=== PATIENT | male | born 1950 ===

== ENCOUNTER 2020-05-09 06:58 | Day surgery (SDC) | payer MEDICARE, BC ==
[~2020-05-09 06:58] MED LIST: Famotidine 20 MG/2 ML SDV IVPUSH SCH; Ropivacaine 49.25 ML, Ketorolac 30 MG, EPINEPHrine 0.5 MG, cloNIDine 80 MCG in Sodium C... INJECT SCH; Tranexamic Acid 1,000 MG in Sodium Chloride 0.9% 100 ML IV ONE
[2020-05-09] MEDS ORDERED: Propofol 200 MG/20 ML SDV ONE ×4 (07:35→11:43)
[2020-05-09] MEDS ORDERED: Ketamine 500 mg/10 ML MDV ONE (07:35)
--- NOTE | 2020-05-09 07:37 | PCM.PREANE ---
Preanesthetic Assessment - Anesthesia/Transfusion/Family Hx Anesthesia History: Prior Anesthesia Without Reaction (L RACHEL 10 mo ago under spinal) Other Type of Anesthesia Reaction Comment: states "it took 3 days for the Anesthesia to leave my body" some nausea Transfusion History: No Prior Transfusion(s) Intubation History: Unknown - Review of Systems General: No Symptoms Pulmonary: No Symptoms Cardiovascular: No Symptoms Gastrointestinal: No Symptoms Neurological: No Symptoms Other: Reports: None - Physical Assessment NPO Status Date: 05/08/20 Vital Signs: Last Vital Signs Temp 96.6 F L 05/09/20 07:15 Pulse 67 05/09/20 07:15 Resp 16 05/09/20 07:15 BP 179/82 H 05/09/20 07:15 Pulse Ox 98 05/09/20 07:15 Height: 5 ft 7 in Weight: 102.058 kg ASA Class: 3 Airway Class: Mallampati = 2 Dentition: Reports: [place](s) ("caps" on maxillary central incisors) ROM/Head Extension: Full Lungs: Clear to Auscultation, Normal Respiratory Effort Cardiovascular: Regular Rate, Regular Rhythm Other: thick neck but denies LIANNE sx - Allergies Allergies/Adverse Reactions: Allergies Allergy/AdvReac Type Severity Reaction Status Date / Time bee venom protein (honey bee) Allergy Anaphylactic Verified 05/04/20 12:12 Shock Iodinated Contrast Media Allergy Rash Verified 05/04/20 12:12 [Iodinated Contrast- Oral and IV Dye] - Acknowledgements Anesthesia Type Planned: Spinal Pt an Appropriate Candidate for the Planned Anesthesia: Yes Alternatives and Risks of Anesthesia Discussed w Pt/Guardian: Yes Pt/Guardian Understands and Agrees with Anesthesia Plan: Yes Additional Comments: PMH: hx of abnoemal stress test, had heart cath in [place], told one vessel disease to not require intervention, HTN, DM2 with glucose 171 upon arrival, peripheral neuropathy from DM2 PLAN: spinal with iv sedation PreAnesthesia Questionnaire HEENT History: Reports: Other (See Below) Other HEENT History: wears glasses, Cardiovascular History: Reports: High Cholesterol, Hypertension Respiratory History: Reports: None Gastrointestinal History: Reports: Diverticulosis Genitourinary History: Reports: BPH Musculoskeletal History: Reports: Osteoarthritis Neurological History: Reports: Concussion Other Neuro History: from [facility] Psychiatric History: Reports: None Endocrine/Metabolic History: Reports: Diabetes, Type II, Obesity/BMI 30+ Hematologic History: Reports: None Other Hematologic History: diagnosed at age 16- has had blood removed in the past- no symptoms for many years Immunologic History: Reports: None Oncologic (Cancer) History: Reports: None Dermatologic History: Reports: None - Infectious Disease History Infectious Disease History: Reports: Chicken Pox - Past Surgical History Other HEENT Surgeries/Procedures: has one dental implant (tooth) Musculoskeletal Surgical History: Reports: None, Other (See Below) - SUBSTANCE USE Smoking Status *Q: Never Smoker Recreational Drug Use History: No - HOME MEDS Home Medications: Home Meds amLODIPine Besylate [Norvasc] 2.5 mg PO BEDTIME 09/16/16 [History] atorvaSTATin Calcium [Atorvastatin Calcium] 10 mg PO BEDTIME 09/16/16 [History] metFORMIN HCl [Metformin HCl] 1,000 mg PO BID 09/16/16 [History] SitaGLIPtin [Januvia] 100 mg PO DAILY 06/30/18 [History] Lisinopril/Hydrochlorothiazide [Lisinopril-Hctz 20-25 mg Tab] 1 tab PO BEDTIME 07/07/19 [History] [place]-3 Acid Ethyl Esters [Lovaza] 2,000 mg PO BID 05/04/20 [History] - CURRENT (IN HOUSE) MEDS Current Meds: Current Medications Famotidine (Pepcid) 40 mg IVPUSH ONARRIVE DEINS Ropivacaine 49.25 ml/Ketorolac Tromethamine 30 mg/Epinephrine HCl 0.5 mg/Clonidine HCl 80 mcg/ Sodium Chloride 75 mls @ 50 mls/sec INJECT ASDIRECTED DENIS Cefazolin Sodium/Dextrose 2 gm (/ Premix) 50 mls @ 100 mls/hr IV ONCALL DENIS Lactated Ringer's (Ringers, Lactated) 1,000 mls @ 100 mls/hr IV ASDIRECTED DENIS Discontinued Medications Tranexamic Acid 1,000 mg/ (Sodium Chloride) 110 mls @ 600 mls/hr IV ASDIRECTED ONE Stop: 05/09/20 06:11
[2020-05-09] MEDS: Lactated Ringers 1,000 ML IV SCH ×2 (07:45→15:52)
[2020-05-09] MEDS ORDERED: ceFAZolin 2 GM in Premix Bag 1 BAG IV SCH (08:00)
[2020-05-09] MEDS ORDERED: Famotidine 20 MG/2 ML SDV ONE ×2 (08:01→08:04)
[2020-05-09] MEDS ORDERED: fentaNYL 100 MCG/2 ML SDV ONE (08:44)
[2020-05-09] MEDS ORDERED: ceFAZolin/Dextrose,Iso-Osmotic 2 GM/50 ML Duplex Bag IV ONE (09:44)
--- NOTE | 2020-05-09 12:10 | PCM.OPNOTE ---
- General Post-Op/Procedure Note Date of Surgery/Procedure: 05/09/20 Operative Procedure(s): Right total hip replacement Findings: Severe right hip arthrosis with large osteophytes and complete loss of joint space Pre Op Diagnosis: Right hip grade 4 primary osteoarthritis Post-Op Diagnosis: Right hip grade 4 primary osteoarthritis Anesthesia Technique: Spinal Primary Surgeon: Severo Pepper Hospitality Intern: Mita Mclean Hospitality Intern Was Necessary: Retraction and positioning, hip reduction. Pathology: Bone cuts and periarticular soft tissues EBL in mLs: 300 Complications: None Free Text/Narrative:: Patient is a 69-year-old male who previously had a left total hip arthroplasty. He had an excellent outcome. He had grade 4 arthritis of the right hip and wished to proceed with a right total hip replacement. We discussed the risks an d benefits of surgery. He was medically cleared for surgery by his primary care provider. All questions were answered. Patient consented to proceed with surgery. Patient was taken to the operating. After adequate spinal anesthesia, he was placed in a left lateral decubitus position with right side up. The right buttock hip and thigh were prepped and draped in usual sterile manner. An anterolateral approach to the hip was used. Skin was incised with a scalpel. Subcutaneous tissues were incised electrocautery. The iliotibial band was split between fibers. The anterior third of the abductors were taken down and retracted anteriorly. A capsulotomy was performed with retraction sutures placed in the corners. The hip dislocated and the proximal femoral cut made with an oscillating saw. Retractors were placed around the acetabulum. Labrum and soft tissues were excised. The acetabulum was sequentially reamed to the medial wall up to a size 56. A [employer] R3 acetabular shell was inserted. Two screws were inserted through the holes in the shell. Two hole covers were placed. A 20 degree build up highly cross-linked acetabular liner was then inserted and locked into place. The proximal femur was prepared starting with a cookie cutter. Sequentially reamed to size 13-14. Then sequentially broached to size 13 with good fit and fill and stability. A trial reduction was done with a +0 36 mm head with had good range of motion and stability. Trial components were removed from the femur. A [employer] Synergy standard offset ingrowth femoral stem was then inserted. A +0 36 mm diameter Oxinium femoral head was then tapped in place. The hip was reduced and again excellent stability and range of motion were noted. Wounds were irrigated. Capsulotomy was repaired with interrupted #1 Vicryl sutures. Abductors were repaired back to the greater trochanter with interrupted #5 Ethibond sutures. Iliotibial band was repaired with interrupted #1 Vicryl sutures and the edges closed with running sutures. Skin was closed with a running subcuticular stitch. Steri-Strips and a sterile dressing were applied and patient was a come to the recovery room in stable condition. Pain management: Periarticular injections, fascia iliaca block, ibuprofen, acetaminophen, oxycodone. Venous thromboembolism prophylaxis: Enteric-coated aspirin 325 mg daily for 3 months Antibiotics: Ancef 1 g for 2 doses Restrictions: Patient is weightbearing as tolerated on his right lower extremity with walker assistive device as needed. Anterolateral hip dislocation precautions.
[2020-05-09] MEDS ORDERED: Sodium Chloride 0.9% 2.5 ML Syringe FLUSH PRN (12:24)
[2020-05-09] MEDS ORDERED: Sodium Chloride 0.9% 10 ML Syringe FLUSH PRN (12:24)
[2020-05-09] MEDS ORDERED: Ondansetron 4 MG/2 ML SDV IVPUSH PRN (12:24)
[2020-05-09] MEDS ORDERED: traMADol 50 MG Tab PO PRN (12:24)
[2020-05-09] MEDS ORDERED: Docusate Sodium 100 MG Cap PO PRN (12:24)
[2020-05-09] MEDS ORDERED: diphenhydrAMINE 25 MG Cap PO PRN (12:24)
[2020-05-09] MEDS ORDERED: Bisacodyl 10 MG Supp RECTAL PRN (12:24)
[2020-05-09] MEDS ORDERED: oxyCODONE 5 MG Tab PO PRN (12:24)
[2020-05-09] MEDS ORDERED: Aluminum Hydroxide/Magnesium Hydroxide/Simethicone Susp 30 ML Cup PO PRN (12:24)
[2020-05-09] MEDS ORDERED: Ropivacaine 0.2% PF 2 MG/ML 20 ML SDV ONE (12:58)
[2020-05-09] MEDS ORDERED: Ketorolac 30 MG/ML SDV ONE (13:30)
[2020-05-09] MEDS: Ketorolac 15 MG/ML SDV IVPUSH SCH ×3 (13:33→23:40)
--- NOTE | 2020-05-09 14:00 | PCM.POSTAN ---
POST ANESTHESIA ASSESSMENT - MENTAL STATUS Mental Status: Alert, Oriented - VITAL SIGNS Vital Signs: Last Vital Signs Temp 36.7 C 05/09/20 12:14 Pulse 66 05/09/20 13:31 Resp 21 H 05/09/20 13:31 BP 130/66 05/09/20 13:31 Pulse Ox 93 L 05/09/20 13:31 - RESPIRATORY Respiratory Status: Respiratory Rate WNL, Airway Patent, O2 Saturation Stable - CARDIOVASCULAR CV Status: Pulse Rate WNL, Blood Pressure Stable - GASTROINTESTINAL GI Status: No Symptoms - PAIN Pain Score: 0 - POST OP HYDRATION Hydration Status: Adequate & Stable - OBSERVATIONS Free Text/Narrative:: No anesthesia complications noted.
--- NOTE | 2020-05-09 14:07 | PCM.SN.2 ---
- Free Text/Narrative Note: Anesthesia Post-op Pain Right Fascia Iliaca Block Surgeon request block for post op pain management. Informed consent obtained. Anatomy of right inguinal area identified using ultrasound and landmarks. Chloraprep to right inguinal area. Right Femoral artery and right iliaca muscle identified. #20x4 inch needle was introduced using an in-plane approach. Needle position was identified as adequate. Fascial Iliaca was hydro-dissected with 3ml of Normal Saline. Adequate dissection noted. A volume of 20ml of 0.5% Ropiva chela was slowly and cautiously injected in divided doses. No TOOLROOM ATTENDANT effects or heme aspirated. Adequate local spread was noted. Patient tolerated well. Time with patient: 05/09/2020 [id number].
[2020-05-09 14:28] LABS: BLOOD UREA NITROGEN,BUN 11 mg/dL (7.0-18.0); CARBON DIOXIDE,CO2 27.2 mmol/L (21.0-32.0); CHLORIDE,CL 103 mmol/L (98-107); GLUCOSE RANDOM 185 mg/dL (74-106); POTASSIUM,K 4.1 mmol/L (3.5-5.1); SODIUM,NA 139 mmol/L (136-148)
--- NOTE | 2020-05-09 14:33 | PCM.CONS ---
H&P History of Present Illness - General Date of Service: 05/09/20 Admit Problem/Dx: Admission Diagnosis/Problem Admission Diagnosis/Problem Hip pain Source of Information: Patient, Old Records History Limitations: Reports: No Limitations - History of Present Illness Initial Comments - Free Text/Narative: This 69 year old male admitted for R total hip arthroplasty with Dr Pepper. Has PMH of HTN, DM type 2, and obesity, hospitalist consultation for medical management. Camilo recently arrived to the unit from the PACU. Reports he is feeling well, wanting water or ice chips. Denies chest pain or SOB. Denies hip pain currently. Sensation slowly returning to legs post spinal anesthesia. Had L total hip last year, no significant change in health. Denies new heart disease, NC or CVA. Reports he had a abnormal stress test but then cath revealed a small artery, no disease. No stent was placed. reports DM type 2 is well controlled with home regimen. - Related Data Allergies/Adverse Reactions: Allergies Allergy/AdvReac Type Severity Reaction Status Date / Time bee venom protein (honey bee) Allergy Anaphylactic Verified 05/04/20 12:12 Shock Iodinated Contrast Media Allergy Rash Verified 05/04/20 12:12 [Iodinated Contrast- Oral and IV Dye] Home Medications: Home Meds amLODIPine Besylate [Norvasc] 2.5 mg PO BEDTIME 09/16/16 [History] atorvaSTATin Calcium [Atorvastatin Calcium] 10 mg PO BEDTIME 09/16/16 [History] metFORMIN HCl [Metformin HCl] 1,000 mg PO BID 09/16/16 [History] SitaGLIPtin [Januvia] 100 mg PO DAILY 06/30/18 [History] Lisinopril/Hydrochlorothiazide [Lisinopril-Hctz 20-25 mg Tab] 1 tab PO BEDTIME 07/07/19 [History] [place]-3 Acid Ethyl Esters [Lovaza] 2,000 mg PO BID 05/04/20 [History] Past Medical History HEENT History: Reports: Other (See Below) Other HEENT History: wears glasses, Cardiovascular History: Reports: CAD, High Cholesterol, Hypertension Other Cardiovascular History: positive stress test, but cath revealed no disease per patient, just a "small artery" Respiratory History: Reports: None. Denies: COPD, SOB Gastrointestinal History: Reports: Diverticulosis Genitourinary History: Reports: BPH Musculoskeletal History: Reports: Osteoarthritis Neurological History: Reports: Concussion. Denies: CVA, TIA Other Neuro History: from [place] Psychiatric History: Reports: None Endocrine/Metabolic History: Reports: Diabetes, Type II, Obesity/BMI 30+ Hematologic History: Reports: None Other Hematologic History: diagnosed at age 16- has had blood removed in the past- no symptoms for many years Immunologic History: Reports: None Oncologic (Cancer) History: Reports: None Dermatologic History: Reports: None - Infectious Disease History Infectious Disease History: Reports: Chicken Pox - Past Surgical History Other HEENT Surgeries/Procedures: has one dental implant (tooth) Musculoskeletal Surgical History: Reports: None, Hip Replacement Social & Family History - Family History Family Medical History: Noncontributory - Tobacco Use Smoking Status *Q: Never Smoker - Caffeine Use Caffeine Use: Reports: Coffee - Alcohol Use Alcohol Use History: No - Recreational Drug Use Recreational Drug Use: No Drug Use in Last 12 Months: No - Living Situation & Occupation Living situation: Reports: Occupation: Retired H&P Review of Systems - Review of Systems: Review Of Systems: See Below General: Reports: No Symptoms. Denies: Fever, Chills, Malaise, Weakness HEENT: Reports: No Symptoms. Denies: Sore Throat (dry throat) Pulmonary: Reports: No Symptoms. Denies: Shortness of Breath, Wheezing Cardiovascular: Reports: No Symptoms. Denies: Chest Pain Gastrointestinal: Reports: No Symptoms. Denies: Abdominal Pain, Black Stool, Bloody Stool, Nausea, Vomiting Genitourinary: Reports: No Symptoms. Denies: Dysuria, Frequency Musculoskeletal: Reports: No Symptoms Skin: Reports: No Symptoms Psychiatric: Reports: No Symptoms Neurological: Reports: No Symptoms Hematologic/Lymphatic: Reports: No Symptoms Immunologic: Reports: No Symptoms Exam - Exam Exam: See Below - Vital Signs Vital Signs: Last Vital Signs Temp 98.1 F 05/09/20 12:14 Pulse 66 05/09/20 13:31 Resp 21 H 05/09/20 13:31 BP 130/66 05/09/20 13:31 Pulse Ox 93 L 05/09/20 13:31 Weight: 102.058 kg - Exam General: Alert, Oriented, Cooperative HEENT: Conjunctiva Clear. No: Mucosa Moist & [place] (dry) Neck: Supple, Trachea Midline Lungs: Clear to Auscultation, Normal Respiratory Effort Cardiovascular: Regular Rate, Regular Rhythm, Normal S1, Normal S2. No: Systolic Murmur GI/Abdominal Exam: Normal Bowel Sounds, Soft, Non-Tender, Other (obese abdomen) Extremities: Normal Inspection, Normal Range of Motion, Non-Tender, No Pedal Edema Skin: Warm, Dry, Incision (R hip) Neuro Extensive - Mental Status: Alert, Oriented x3 Neuro Extensive - Motor, Sensory, Reflexes: CN II-XII Intact, Other (slowly regaining sensation to legs post spinal) Psychiatric: Alert, Normal Affect, Normal Mood - Patient Data Lab Results Last 24 hrs: Laboratory Results - last 24 hr 05/09/20 05/09/20 Range/Units 07:38 14:00 WBC 14.89 H (4.0-11.0) K/uL RBC 4.37 L (4.50-5.90) M/uL Hgb 12.9 L (13.0-17.0) g/dL Hct 38.1 (38.0-50.0) % MCV 87.2 (80.0-98.0) fL MCH 29.5 (27.0-32.0) pg MCHC 33.9 (31.0-37.0) g/dL RDW Std Deviation 41.8 (28.0-62.0) fl RDW Coeff of Jie 13 (11.0-15.0) % Plt Count 190 (150-400) K/uL MPV 9.80 (7.40-12.00) fL Neut % (Auto) 83.0 H (48.0-80.0) % Lymph % (Auto) 10.0 L (16.0-40.0) % [place] % (Auto) 6.4 (0.0-15.0) % Eos % (Auto) 0.5 (0.0-7.0) % Baso % (Auto) 0.1 (0.0-1.5) % Neut # (Auto) 12.4 H (1.4-5.7) K/uL Lymph # (Auto) 1.5 (0.6-2.4) K/uL [place] # (Auto) 1.0 H (0.0-0.8) K/uL Eos # (Auto) 0.1 (0.0-0.7) K/uL Baso # (Auto) 0.0 (0.0-0.1) K/uL Nucleated RBC % 0.0 /100WBC Nucleated RBCs # 0 K/uL Blood Type A POSITIVE Antibody Screen NEGATIVE Result Diagrams: 05/09/20 14:00 05/09/20 14:00 Sepsis Event Note - Focused Exam Vital Signs: Vital Signs Temp Pulse Resp BP Pulse Ox 05/09/20 13:31 66 21 H 130/66 93 L 05/09/20 13:21 67 13 126/79 95 05/09/20 13:11 67 13 123/62 96 05/09/20 13:01 70 15 133/64 94 L 05/09/20 12:55 70 12 134/69 96 05/09/20 12:51 73 12 143/74 H 96 05/09/20 12:46 71 12 132/67 95 05/09/20 12:40 73 11 L 124/72 94 L 05/09/20 12:35 80 13 134/65 96 05/09/20 12:31 74 12 124/64 96 05/09/20 12:26 78 12 130/60 96 05/09/20 12:21 77 15 138/60 94 L 05/09/20 12:14 98.1 F 84 15 122/71 96 05/09/20 07:15 96.6 F L 67 16 179/82 H 98 Consult PN Assessment/Plan POD#: 0 Procedures: Procedures ASSAY OF PSA TOTAL (10/26/19) COMPLETE CBC W/AUTO DIFF WBC (07/12/19) COMPREHEN METABOLIC PANEL (07/10/18) CT ABD & PELVIS W/O CONTRAST (07/10/18) CULTURE AEROBIC IDENTIFY (10/23/14) DECALCIFY TISSUE (07/12/19) EMERGENCY DEPT VISIT (07/10/18) GAIT TRAINING THERAPY (07/12/19) GLUCOSE BLOOD TEST (07/12/19) HYDRATE IV INFUSION ADD-ON (07/10/18) IIV NO PRSV INCREASED AG IM (07/12/19) MANUAL THERAPY 1/> REGIONS (04/04/19) METABOLIC PANEL TOTAL CA (07/12/19) MICROBE SUSCEPTIBLE NIA (10/23/14) OFFICE/OUTPATIENT VISIT EST (10/26/19) OFFICE/OUTPATIENT VISIT NEW (05/12/19) PRP I/ZAY INIT REDUC >5 YR (07/07/18) PT EVAL LOW COMPLEX 20 MIN (07/12/19) ROUTINE VENIPUNCTURE (10/26/19) RPR UMBIL ZAY BLOCK > 5 YR (11/06/16) THER/PROPH/DIAG INJ IV PUSH (07/10/18) THERAPEUTIC EXERCISES (04/04/19) TISSUE EXAM BY PATHOLOGIST (07/12/19) URINALYSIS AUTO W/SCOPE (10/26/19) URINE BACTERIA CULTURE (10/23/14) US TRANSRECTAL (12/27/18) X-RAY EXAM HIP UNI 2-3 VIEWS (09/29/19) (1) S/P total hip arthroplasty SNOMED Code(s): 594185566232, 089222687881 Code(s): Z96.649 - PRESENCE OF UNSPECIFIED ARTIFICIAL HIP JOINT Current Visit: No Qualifiers: Laterality: right Qualified Code(s): Z96.641 - Presence of right artificial hip joint (2) CAD (coronary artery disease) SNOMED Code(s): 21719706 Code(s): I25.10 - ATHSCL HEART DISEASE OF [place] CORONARY ARTERY W/O ANG PCTRS Current Visit: Yes (3) DM type 2 (diabetes mellitus, type 2) SNOMED Code(s): 86363188 Code(s): E11.9 - TYPE 2 DIABETES MELLITUS WITHOUT COMPLICATIONS Current Visit: No Qualifiers: (4) Dyslipidemia SNOMED Code(s): 649285484 Code(s): E78.5 - HYPERLIPIDEMIA, UNSPECIFIED Current Visit: No (5) HTN (hypertension) SNOMED Code(s): 59996764 Code(s): I10 - ESSENTIAL (PRIMARY) HYPERTENSION Current Visit: No Qualifiers: (6) Obesity SNOMED Code(s): 521981228, 227289750 Code(s): E66.9 - OBESITY, UNSPECIFIED Current Visit: No Problem List Initiated/Reviewed/Updated: Yes My Orders Last 24 Hours: My Active Orders 05/09/20 14:00 BASIC METABOLIC PANEL,BMP [CHEM] Routine MAGNESIUM [CHEM] Routine Plan: This 69 year old male admitted for R total hip with Dr Pepper. hospitalist service consulted for medical management 1. S/P R total hip - Orders per Orthopedics - Leukocytosis likely related to surgery. No acute infection - Encourage IS 2. Dm Type 2: - Hold PO medications - Novolog SSI with meals - May restart all home medications upon discharge 3. HTN: - Stable currently - Restart home medications of Amlodipine, Lisinopril and HCTZ tomorrow - BMP stable. Monitor in am. VTE prophylaxis: recommended when deemed appropriate by Orthopedics.
--- NOTE | 2020-05-09 14:39 | CR ---
Pelvis: AP view of the pelvis was obtained. Comparison: Prior right hip exam of 03/16/20 and pelvis exam of 09/29/19. Right hip prosthesis is seen. This appears to be fairly recently placed as soft tissue air is seen around the right hip. Left hip prosthesis is seen which is stable. Underlying bony structures are intact. Impression: 1. Recently placed right hip prosthesis. 2. Stable left hip prosthesis. 3. Nothing acute is appreciated. Diagnostic code #2 This report was dictated in MDT
[2020-05-09] MEDS: Acetaminophen 325 MG Tab PO SCH ×2 (15:35→20:12)
[2020-05-09] MEDS ORDERED: Aspirin 325 MG Tab PO SCH (17:00)
[2020-05-09] MEDS: Insulin Aspart 100 Units/ML 3 ML Pen SUBCUT SCH (17:35)
[2020-05-09] MEDS: ceFAZolin 2 GM in Premix Bag 1 BAG IV SCH (17:36)
[2020-05-09] MEDS ORDERED: Lisinopril/Hydrochlorothiazide 10-12.5 MG Tab PO SCH (21:00)
[2020-05-09] MEDS ORDERED: atorvaSTATin 10 MG Tab PO SCH (21:00)
[2020-05-09] MEDS ORDERED: amLODIPine 2.5 MG Tab PO SCH (21:00)
[2020-05-10] MEDS: ceFAZolin 2 GM in Premix Bag 1 BAG IV SCH (01:29)
[2020-05-10] MEDS: Acetaminophen 325 MG Tab PO SCH ×2 (03:57→09:03)
[2020-05-10 06:56] LABS: BLOOD UREA NITROGEN,BUN 13 mg/dL (7.0-18.0); CARBON DIOXIDE,CO2 28.3 mmol/L (21.0-32.0); CHLORIDE,CL 101 mmol/L (98-107); GLUCOSE RANDOM 208 mg/dL (74-106); POTASSIUM,K 4.2 mmol/L (3.5-5.1); SODIUM,NA 138 mmol/L (136-148)
--- NOTE | 2020-05-10 07:43 | PCM48HPAN ---
Post Anesthesia Note - EVALUATION WITHIN 48HRS OF ANESTHETIC Vital Signs in Normal Range: Yes Patient Participated in Evaluation: Yes Respiratory Function Stable: Yes Airway Patent: Yes Cardiovascular Function Stable: Yes Hydration Status Stable: Yes Pain Control Satisfactory: Yes Nausea and Vomiting Control Satisfactory: Yes Mental Status Recovered: Yes Vital Signs: Last Vital Signs Temp 36.7 C 05/10/20 04:18 Pulse 84 05/10/20 04:18 Resp 20 05/10/20 04:18 BP 141/67 H 05/10/20 04:18 Pulse Ox 94 L 05/10/20 04:18 - COMMENTS/OBSERVATIONS Free Text/Narrative:: Patient up in the chair. Pain well controlled. Denies any concerns. No anesthesia complications noted.
[2020-05-10 07:47] VITALS: BP 136/67; PULSE 86
--- NOTE | 2020-05-10 08:26 | PCM.SURGPN ---
- General Info Date of Service: 05/10/20 (0810) Date of Surgery/Procedure: 05/09/20 (Right RACHEL) POD#: 1 Post-Op Diagnosis: right hip OA Admission Diagnosis/Problem: Hip pain Functional Status: Reports: Pain Controlled (pain tolerable, and states will take Tylenol if needed.), Tolerating Diet (sitting in chair eating breakfast without N/V), Ambulating (with walker), Urinating - Review of Systems General: Denies: Fever Pulmonary: Reports: No Symptoms Cardiovascular: Reports: No Symptoms Gastrointestinal: Denies: Nausea, Vomiting Musculoskeletal: Reports: Joint Pain (right hip post-operative pain, tolerable) Neurological: Reports: No Symptoms Psychiatric: Reports: No Symptoms - Patient Data Vitals - Most Recent: Last Vital Signs Temp 36.9 C 05/10/20 07:00 Pulse 86 05/10/20 07:00 Resp 16 05/10/20 07:00 BP 136/67 05/10/20 07:00 Pulse Ox 94 L 05/10/20 07:00 Weight - Most Recent: 102.058 kg I&O - Last 24 Hours: Intake & Output 05/09/20 05/10/20 05/10/20 22:59 06:59 14:59 Intake Total 940 650 Output Total 0 Balance 940 650 Lab Results Last 24 Hrs: Laboratory Results - last 24 hr 05/09/20 05/09/20 05/09/20 Range/Units 07:36 07:38 12:49 WBC (4.0-11.0) K/uL RBC (4.50-5.90) M/uL Hgb (13.0-17.0) g/dL Hct (38.0-50.0) % MCV (80.0-98.0) fL MCH (27.0-32.0) pg MCHC (31.0-37.0) g/dL RDW Std Deviation (28.0-62.0) fl RDW Coeff of Jie (11.0-15.0) % Plt Count (150-400) K/uL MPV (7.40-12.00) fL Neut % (Auto) (48.0-80.0) % Lymph % (Auto) (16.0-40.0) % [place] % (Auto) (0.0-15.0) % Eos % (Auto) (0.0-7.0) % Baso % (Auto) (0.0-1.5) % Neut # (Auto) (1.4-5.7) K/uL Lymph # (Auto) (0.6-2.4) K/uL [place] # (Auto) (0.0-0.8) K/uL Eos # (Auto) (0.0-0.7) K/uL Baso # (Auto) (0.0-0.1) K/uL Nucleated RBC % /100WBC Nucleated RBCs # K/uL Sodium (136-148) mmol/L Potassium (3.5-5.1) mmol/L Chloride (98-107) mmol/L Carbon Dioxide (21.0-32.0) mmol/L BUN (7.0-18.0) mg/dL Creatinine (0.8-1.3) mg/dL Est Cr Clr Drug Dosing mL/min Estimated GFR (MDRD) ml/min Glucose (74-106) mg/dL POC Glucose 171 H 164 H (60-110) mg/dL Calcium (8.5-10.1) mg/dL Magnesium (1.8-2.4) mg/dL Blood Type A POSITIVE Antibody Screen NEGATIVE 05/09/20 05/09/20 05/09/20 Range/Units 14:00 14:00 16:36 WBC 14.89 H (4.0-11.0) K/uL RBC 4.37 L (4.50-5.90) M/uL Hgb 12.9 L (13.0-17.0) g/dL Hct 38.1 (38.0-50.0) % MCV 87.2 (80.0-98.0) fL MCH 29.5 (27.0-32.0) pg MCHC 33.9 (31.0-37.0) g/dL RDW Std Deviation 41.8 (28.0-62.0) fl RDW Coeff of Jie 13 (11.0-15.0) % Plt Count 190 (150-400) K/uL MPV 9.80 (7.40-12.00) fL Neut % (Auto) 83.0 H (48.0-80.0) % Lymph % (Auto) 10.0 L (16.0-40.0) % [place] % (Auto) 6.4 (0.0-15.0) % Eos % (Auto) 0.5 (0.0-7.0) % Baso % (Auto) 0.1 (0.0-1.5) % Neut # (Auto) 12.4 H (1.4-5.7) K/uL Lymph # (Auto) 1.5 (0.6-2.4) K/uL [place] # (Auto) 1.0 H (0.0-0.8) K/uL Eos # (Auto) 0.1 (0.0-0.7) K/uL Baso # (Auto) 0.0 (0.0-0.1) K/uL Nucleated RBC % 0.0 /100WBC Nucleated RBCs # 0 K/uL Sodium 139 (136-148) mmol/L Potassium 4.1 (3.5-5.1) mmol/L Chloride 103 (98-107) mmol/L Carbon Dioxide 27.2 (21.0-32.0) mmol/L BUN 11 (7.0-18.0) mg/dL Creatinine 0.9 (0.8-1.3) mg/dL Est Cr Clr Drug Dosing 70.38 mL/min Estimated GFR (MDRD) > 60.0 ml/min Glucose 185 H (74-106) mg/dL POC Glucose 150 H (60-110) mg/dL Calcium 8.7 (8.5-10.1) mg/dL Magnesium 1.8 (1.8-2.4) mg/dL Blood Type Antibody Screen 05/10/20 05/10/20 05/10/20 Range/Units 06:08 06:09 06:09 WBC (4.0-11.0) K/uL RBC (4.50-5.90) M/uL Hgb 12.0 L (13.0-17.0) g/dL Hct 35.8 L (38.0-50.0) % MCV (80.0-98.0) fL MCH (27.0-32.0) pg MCHC (31.0-37.0) g/dL RDW Std Deviation (28.0-62.0) fl RDW Coeff of Jie (11.0-15.0) % Plt Count (150-400) K/uL MPV (7.40-12.00) fL Neut % (Auto) (48.0-80.0) % Lymph % (Auto) (16.0-40.0) % [place] % (Auto) (0.0-15.0) % Eos % (Auto) (0.0-7.0) % Baso % (Auto) (0.0-1.5) % Neut # (Auto) (1.4-5.7) K/uL Lymph # (Auto) (0.6-2.4) K/uL [place] # (Auto) (0.0-0.8) K/uL Eos # (Auto) (0.0-0.7) K/uL Baso # (Auto) (0.0-0.1) K/uL Nucleated RBC % /100WBC Nucleated RBCs # K/uL Sodium 138 (136-148) mmol/L Potassium 4.2 (3.5-5.1) mmol/L Chloride 101 (98-107) mmol/L Carbon Dioxide 28.3 (21.0-32.0) mmol/L BUN 13 (7.0-18.0) mg/dL Creatinine 1.0 (0.8-1.3) mg/dL Est Cr Clr Drug Dosing 63.35 mL/min Estimated GFR (MDRD) > 60.0 ml/min Glucose 208 H (74-106) mg/dL POC Glucose 209 H (60-110) mg/dL Calcium 8.6 (8.5-10.1) mg/dL Magnesium 1.9 (1.8-2.4) mg/dL Blood Type Antibody Screen Med Orders - Current: Current Medications Acetaminophen (Tylenol) 650 mg PO Q6H [facility] Last Admin: 05/10/20 03:57 Dose: Not Given Documented by: Al Hydroxide/Mg Hydroxide (Mag-Al Plus) 30 ml PO Q4H PRN PRN Reason: Indigestion Amlodipine Besylate (Norvasc) 2.5 mg PO BEDTIME [facility] Last Admin: 05/09/20 20:12 Dose: Not Given Documented by: Aspirin (Ecotrin) 325 mg PO DAILY [facility] Atorvastatin Calcium (Lipitor) 10 mg PO BEDTIME [facility] Last Admin: 05/09/20 20:12 Dose: Not Given Documented by: Bisacodyl (Dulcolax) 10 mg RECTAL DAILY PRN PRN Reason: Constipation Diphenhydramine HCl (Benadryl) 25 - 50 mg PO Q6H PRN PRN Reason: Itching Docusate Sodium (Colace) 100 mg PO BID PRN PRN Reason: Constipation Famotidine (Pepcid) 40 mg IVPUSH ONARRIVE [facility] Last Admin: 05/09/20 08:03 Dose: 40 mg Documented by: Famotidine (Pepcid) 40 mg PO DAILY [facility] Lisinopril/HCTZ (Lisinopril-Hctz 10-12.5 Mg) 2 tab PO BEDTIME [facility] Last Admin: 05/09/20 20:12 Dose: Not Given Documented by: Ropivacaine 49.25 ml/Ketorolac Tromethamine 30 mg/Epinephrine HCl 0.5 mg/Clonidine HCl 80 mcg/ Sodium Chloride 75 mls @ 50 mls/sec INJECT ASDIRECTED [facility] Cefazolin Sodium/Dextrose 2 gm (/ Premix) 50 mls @ 100 mls/hr IV ONCALL [facility] Lactated Ringer's (Ringers, Lactated) 1,000 mls @ 100 mls/hr IV ASDIRECTED [facility] Last Admin: 05/09/20 15:52 Dose: 100 mls/hr Documented by: Ibuprofen (Motrin) 600 mg PO Q6H PRN PRN Reason: Pain Insulin Aspart (Novolog) 0 unit SUBCUT TIDAC [facility]; Protocol Last Admin: 05/09/20 17:35 Dose: Not Given Documented by: Ondansetron HCl (Zofran) 4 mg IVPUSH Q6H PRN PRN Reason: Nausea/Vomiting Oxycodone HCl (Oxycodone) 5 - 10 mg PO Q4H PRN PRN Reason: Pain Polyethylene Glycol (Miralax) 17 gm PO DAILY [facility] Sodium Chloride (Saline Flush) 10 ml FLUSH ASDIRECTED PRN PRN Reason: Keep Vein Open Sodium Chloride (Saline Flush) 2.5 ml FLUSH ASDIRECTED PRN PRN Reason: Keep Vein Open Tramadol HCl (Ultram) 50 - 100 mg PO Q6H PRN PRN Reason: Pain Last Admin: 05/09/20 21:44 Dose: 100 mg Documented by: Discontinued Medications Aspirin (Aspirin) 325 mg PO DAILY [facility] Last Admin: 05/09/20 16:43 Dose: 325 mg Documented by: Cefazolin Sodium/Dextrose (Ancef) Confirm Administered Dose 2 gm IV .STK-MED ONE Stop: 05/09/20 09:45 Famotidine (Pepcid) Confirm Administered Dose 20 mg .ROUTE .STK-MED ONE Stop: 05/09/20 08:02 Famotidine (Pepcid) Confirm Administered Dose 20 mg .ROUTE .STK-MED ONE Stop: 05/09/20 08:05 Fentanyl (Sublimaze) Confirm Administered Dose 100 mcg .ROUTE .STK-MED ONE Stop: 05/09/20 08:45 Tranexamic Acid 1,000 mg/ (Sodium Chloride) 110 mls @ 600 mls/hr IV ASDIRECTED ONE Stop: 05/09/20 06:11 Last Admin: 05/09/20 14:56 Dose: Not Given Documented by: Cefazolin Sodium/Dextrose 2 gm (/ Premix) 50 mls @ 100 mls/hr IV Q8H [facility] Stop: 05/10/20 02:29 Last Admin: 05/10/20 01:29 Dose: 100 mls/hr Documented by: Ketamine HCl (Ketalar) Confirm Administered Dose 500 mg .ROUTE .STK-MED ONE Stop: 05/09/20 07:36 Ketorolac Tromethamine (Toradol) 15 mg IVPUSH Q6H [facility] Stop: 05/10/20 00:31 Last Admin: 05/09/20 23:40 Dose: Not Given Documented by: Ketorolac Tromethamine (Toradol) Confirm Administered Dose 30 mg .ROUTE .STK-MED ONE Stop: 05/09/20 13:31 Last Admin: 05/09/20 15:08 Dose: Not Given Documented by: Lidocaine HCl (Xylocaine-Mpf 1%) Confirm Administered Dose 5 ml .ROUTE .STK-MED ONE Stop: 05/09/20 09:47 Propofol (Diprivan 20 Ml) Confirm Administered Dose 400 mg .ROUTE .STK-MED ONE Stop: 05/09/20 07:36 Propofol (Diprivan 20 Ml) Confirm Administered Dose 200 mg .ROUTE .STK-MED ONE Stop: 05/09/20 10:31 Propofol (Diprivan 20 Ml) Confirm Administered Dose 200 mg .ROUTE .STK-MED ONE Stop: 05/09/20 10:31 Propofol (Diprivan 20 Ml) Confirm Administered Dose 200 mg .ROUTE .STK-MED ONE Stop: 05/09/20 11:44 Ropivacaine (Naropin 0.2%) Confirm Administered Dose [address]-MED ONE Stop: 05/09/20 12:59 Tranexamic Acid (Cyklokapron) Confirm Administered Dose 1,[address]-MED ONE Stop: 05/09/20 08:21 - Exam Wound/Incisions: Dressing Dry and Intact (surgical dressing right hip intact with no shadow of drainage), No Drainage (No drainage on dressing when removed), Other (no acute swelling to right hip). No: Erythema Quality Assessment: DVT Prophylaxis (ASA 325mg) General: Alert, Oriented, Cooperative, No Acute Distress Lungs: Normal Respiratory Effort Extremities: No Pedal Edema (Compression stockings on bilaterally) Skin: Warm, Dry Neurological: Normal Speech Psy/Mental Status: Alert, Normal Affect, Normal Mood Physical Findings Comment:: Surgical dressing removed. Incision CDI : steri-strips intact. no active drainage. Large AquaCell dressing applied Sepsis Event Note - Evaluation Sepsis Screening Result: No Definite Risk - Focused Exam Vital Signs: Vital Signs Temp Pulse Resp BP Pulse Ox 05/10/20 07:00 36.9 C 86 16 136/67 94 L 05/10/20 04:18 36.7 C 84 20 141/67 H 94 L 05/09/20 23:44 36.6 C 78 18 152/70 H 95 - Problem List Review Problem List Initiated/Reviewed/Updated: Yes - My Orders Last 24 Hours: Active Orders 24 hr Category Date Time Status Blood Glucose Check, Bedside [RC] TIDAC Care 05/09/20 14:41 Active Communication Order [RC] PRN Care 05/09/20 12:25 Active Cooling Warming Measures [RC] ASDIRECTED Care 05/09/20 12:25 Active Neurovascular Check [RC] Q2HR Care 05/09/20 12:25 Active Notify Provider Consults [RC] ASDIRECTED Care 05/09/20 12:37 Active Notify Provider Vital Signs [RC] ASDIRECTED Care 05/09/20 12:25 Active RT Incentive Spirometry [RC] Q1HWA Care 05/09/20 12:25 Active Vital Signs [RC] Q4H Care 05/09/20 12:25 Active Wound Care [RC] DAILY Care 05/09/20 12:25 Active Consult to Physician [CONS] Routine Cons 05/09/20 12:24 Active PT Evaluation and Treatment [CONS] Routine Cons 05/09/20 12:25 Active [employer] Diet [DIET] Diet 05/09/20 Dinner Active HEMOGLOBIN/HEMATOCRIT,HH [HEME] DAILY Lab 05/11/20 06:00 Ordered Acetaminophen [TylenoL] Med 05/09/20 15:00 Active 650 mg PO Q6H Alum Hydrox/Mag Hydrox/Simeth [Mag-Al Plus] Med 05/09/20 12:24 Active 30 ml PO Q4H PRN Aspirin [Ecotrin] Med 05/10/20 09:00 Active 325 mg PO DAILY Docusate Sodium [Colace] Med 05/09/20 12:24 Active 100 mg PO BID PRN Famotidine [Pepcid] Med 05/10/20 09:00 Active 40 mg PO DAILY Ibuprofen [Motrin] Med 05/10/20 09:00 Active 600 mg PO Q6H PRN Insulin Aspart [NovoLOG] Med 05/09/20 17:00 Active See Protocol SUBCUT TIDAC Lisinopril/Hydrochlorothiazide [Lisinopril-HCTZ 10-12.5 Med 05/09/20 21:00 Active MG] 2 tab PO BEDTIME Ondansetron [Zofran] Med 05/09/20 12:24 Active 4 mg IVPUSH Q6H PRN Sodium Chloride 0.9% [Saline Flush] Med 05/09/20 12:24 Active 10 ml FLUSH ASDIRECTED PRN Sodium Chloride 0.9% [Saline Flush] Med 05/09/20 12:24 Active 2.5 ml FLUSH ASDIRECTED PRN amLODIPine [Norvasc] Med 05/09/20 21:00 Active 2.5 mg PO BEDTIME atorvaSTATin [Lipitor] Med 05/09/20 21:00 Active 10 mg PO BEDTIME bisacodyL [Dulcolax] Med 05/09/20 12:24 Active 10 mg RECTAL DAILY PRN ceFAZolin [Ancef] 2 gm Med 05/09/20 08:00 Active Premix Bag 1 bag IV ONCALL diphenhydrAMINE [Benadryl] Med 05/09/20 12:24 Active 25 - 50 mg PO Q6H PRN oxyCODONE Med 05/09/20 12:24 Active 5 - 10 mg PO Q4H PRN polyethylene glycoL 3350 [MiraLAX] Med 05/10/20 09:00 Active 17 gm PO DAILY traMADol [Ultram] Med 05/09/20 12:24 Active 50 - 100 mg PO Q6H PRN Anterior Hip Precautions [Hip Precautions Anterior] [OM Ot 05/09/20 12:46 Ordered .PC] Routine Convert IV to Saline Lock [OM.PC] PRN Oth 05/09/20 12:30 Ordered Convert IV to Saline Lock [OM.PC] PRN Ot 05/10/20 12:30 Ordered Ice Therapy [OM.PC] Routine Ot 05/09/20 12:25 Ordered Sequential Compression Device [OM.PC] Routine Ot 05/09/20 08:00 Ordered Medication Orders Acetaminophen (Tylenol) 650 mg PO Q6H [facility] Last Admin: 05/10/20 03:57 Dose: Not Given Documented by: Admin: 05/09/20 20:12 Dose: Not Given Documented by: Admin: 05/09/20 15:35 Dose: Not Given Documented by: DARIUS Al Hydroxide/Mg Hydroxide (Mag-Al Plus) 30 ml PO Q4H PRN PRN Reason: Indigestion Amlodipine Besylate (Norvasc) 2.5 mg PO BEDTIME [facility] Last Admin: 05/09/20 20:12 Dose: Not Given Documented by: MINNIE Aspirin (Ecotrin) 325 mg PO DAILY [facility] Atorvastatin Calcium (Lipitor) 10 mg PO BEDTIME [facility] Last Admin: 05/09/20 20:12 Dose: Not Given Documented by: MINNIE Bisacodyl (Dulcolax) 10 mg RECTAL DAILY PRN PRN Reason: Constipation Diphenhydramine HCl (Benadryl) 25 - 50 mg PO Q6H PRN PRN Reason: Itching Docusate Sodium (Colace) 100 mg PO BID PRN PRN Reason: Constipation Famotidine (Pepcid) 40 mg IVPUSH ONARRIVE [facility] Last Admin: 05/09/20 08:03 Dose: 40 mg Documented by: MARILUZ Famotidine (Pepcid) 40 mg PO DAILY [facility] Lisinopril/HCTZ (Lisinopril-Hctz 10-12.5 Mg) 2 tab PO BEDTIME [facility] Last Admin: 05/09/20 20:12 Dose: Not Given Documented by: MINNIE Ropivacaine 49.25 ml/Ketorolac Tromethamine 30 mg/Epinephrine HCl 0.5 mg/Clonidine HCl 80 mcg/ Sodium Chloride 75 mls @ 50 mls/sec INJECT ASDIRECTED [facility] Cefazolin Sodium/Dextrose 2 gm (/ Premix) 50 mls @ 100 mls/hr IV ONCALL [facility] Lactated Ringer's (Ringers, Lactated) 1,000 mls @ 100 mls/hr IV ASDIRECTED [facility]IS Last Admin: 05/09/20 15:52 Dose: 100 mls/hr Documented by: Infusion: 05/09/20 15:52 Dose: 100 mls/hr Documented by: Admin: 05/09/20 07:45 Dose: 100 mls/hr Documented by: MARILUZ Ibuprofen (Motrin) 600 mg PO Q6H PRN PRN Reason: Pain Insulin Aspart (Novolog) 0 unit SUBCUT TIDAC [facility]; Protocol Last Admin: 05/09/20 17:35 Dose: Not Given Documented by: DARIUS Ondansetron HCl (Zofran) 4 mg IVPUSH Q6H PRN PRN Reason: Nausea/Vomiting Oxycodone HCl (Oxycodone) 5 - 10 mg PO Q4H PRN PRN Reason: Pain Polyethylene Glycol (Miralax) 17 gm PO DAILY [facility] Sodium Chloride (Saline Flush) 10 ml FLUSH ASDIRECTED PRN PRN Reason: Keep Vein Open Sodium Chloride (Saline Flush) 2.5 ml FLUSH ASDIRECTED PRN PRN Reason: Keep Vein Open Tramadol HCl (Ultram) 50 - 100 mg PO Q6H PRN PRN Reason: Pain Last Admin: 05/09/20 21:44 Dose: 100 mg Documented by: MINNIE - Assessment Assessment (Free Text/Narrative):: 1) s/p Right RACHEL - Plan Plan (Free Text/Narrative):: Lux is doing well, and ready to go home. Afebrile. Tolerating food/fluids without N/V. 2 additional doses of Ancef 2gm completed for antibiotic prophylaxis. DVT prophylaxis : ASA 325mg started yesterday, and will take for 90 days. Ambulation, compression stockings and SCDs. Ambulating with use of walker. He has walker at home. Offered Tylenol, but refused, stating will take if needs it. He declined need for narcotic Rx upon discharge, stating he managed his last hip replacement with Tylenol only. Ready for discharge home. He declined need for formal PT. Discussed use of [facility] ice therapy frequently to minimize swelling to right hip. Hospitalist services appreciated for diabetic management.
[2020-05-10] MEDS: Insulin Aspart 100 Units/ML 3 ML Pen SUBCUT SCH (08:30)
[2020-05-10] MEDS ORDERED: Polyethylene Glycol 3350 Powder 17 GM Packet PO SCH (09:00)
[2020-05-10] MEDS ORDERED: Famotidine 20 MG Tab PO SCH (09:00)
[2020-05-10] MEDS ORDERED: Ibuprofen 600 MG Tab PO PRN (09:00)
[2020-05-10] MEDS ORDERED: Aspirin 325 MG Tab.EC PO SCH (09:00)
--- NOTE | 2020-05-10 09:05 | PCM.CONSN ---
- General Info Date of Service: 05/10/20 Admission Dx/Problem (Free Text): Admission Diagnosis/Problem Admission Diagnosis/Problem Hip pain s/p Right total hip arthroplasty Subjective Update: Sitting in chair, reporting his is feeling well. Mild R hip pain. Denies chest pain or SOB. No other concerns. Eating and drinking well, passing flatus and urinating well. Functional Status: Reports: Pain Controlled, Tolerating Diet, Ambulating, Urin ating - Review of Systems General: Reports: No Symptoms HEENT: Reports: No Symptoms Pulmonary: Reports: No Symptoms. Denies: Shortness of Breath Cardiovascular: Reports: No Symptoms. Denies: Chest Pain Gastrointestinal: Reports: No Symptoms. Denies: Abdominal Pain Musculoskeletal: Reports: Joint Pain Skin: Reports: No Symptoms Neurological: Reports: No Symptoms Psychiatric: Reports: No Symptoms - Patient Data Vitals - Most Recent: Last Vital Signs Temp 98.4 F 05/10/20 07:00 Pulse 86 05/10/20 07:00 Resp 16 05/10/20 07:00 BP 136/67 05/10/20 07:00 Pulse Ox 94 L 05/10/20 07:00 Weight - Most Recent: 102.058 kg I&O - Last 24 Hours: Intake & Output 05/09/20 05/10/20 05/10/20 22:59 06:59 14:59 Intake Total 940 650 Output Total 0 Balance 940 650 Lab Results Last 24 Hours: Laboratory Results - last 24 hr 05/09/20 05/09/20 05/09/20 Range/Units 07:36 12:49 14:00 WBC 14.89 H (4.0-11.0) K/uL RBC 4.37 L (4.50-5.90) M/uL Hgb 12.9 L (13.0-17.0) g/dL Hct 38.1 (38.0-50.0) % MCV 87.2 (80.0-98.0) fL MCH 29.5 (27.0-32.0) pg MCHC 33.9 (31.0-37.0) g/dL RDW Std Deviation 41.8 (28.0-62.0) fl RDW Coeff of Jie 13 (11.0-15.0) % Plt Count 190 (150-400) K/uL MPV 9.80 (7.40-12.00) fL Neut % (Auto) 83.0 H (48.0-80.0) % Lymph % (Auto) 10.0 L (16.0-40.0) % Hand % (Auto) 6.4 (0.0-15.0) % Eos % (Auto) 0.5 (0.0-7.0) % Baso % (Auto) 0.1 (0.0-1.5) % Neut # (Auto) 12.4 H (1.4-5.7) K/uL Lymph # (Auto) 1.5 (0.6-2.4) K/uL Hand # (Auto) 1.0 H (0.0-0.8) K/uL Eos # (Auto) 0.1 (0.0-0.7) K/uL Baso # (Auto) 0.0 (0.0-0.1) K/uL Nucleated RBC % 0.0 /100WBC Nucleated RBCs # 0 K/uL Sodium (136-148) mmol/L Potassium (3.5-5.1) mmol/L Chloride (98-107) mmol/L Carbon Dioxide (21.0-32.0) mmol/L BUN (7.0-18.0) mg/dL Creatinine (0.8-1.3) mg/dL Est Cr Clr Drug Dosing mL/min Estimated GFR (MDRD) ml/min Glucose (74-106) mg/dL POC Glucose 171 H 164 H (60-110) mg/dL Calcium (8.5-10.1) mg/dL Magnesium (1.8-2.4) mg/dL 05/09/20 05/09/20 05/10/20 Range/Units 14:00 16:36 06:08 WBC (4.0-11.0) K/uL RBC (4.50-5.90) M/uL Hgb (13.0-17.0) g/dL Hct (38.0-50.0) % MCV (80.0-98.0) fL MCH (27.0-32.0) pg MCHC (31.0-37.0) g/dL RDW Std Deviation (28.0-62.0) fl RDW Coeff of Jie (11.0-15.0) % Plt Count (150-400) K/uL MPV (7.40-12.00) fL Neut % (Auto) (48.0-80.0) % Lymph % (Auto) (16.0-40.0) % Hand % (Auto) (0.0-15.0) % Eos % (Auto) (0.0-7.0) % Baso % (Auto) (0.0-1.5) % Neut # (Auto) (1.4-5.7) K/uL Lymph # (Auto) (0.6-2.4) K/uL Hand # (Auto) (0.0-0.8) K/uL Eos # (Auto) (0.0-0.7) K/uL Baso # (Auto) (0.0-0.1) K/uL Nucleated RBC % /100WBC Nucleated RBCs # K/uL Sodium 139 (136-148) mmol/L Potassium 4.1 (3.5-5.1) mmol/L Chloride 103 (98-107) mmol/L Carbon Dioxide 27.2 (21.0-32.0) mmol/L BUN 11 (7.0-18.0) mg/dL Creatinine 0.9 (0.8-1.3) mg/dL Est Cr Clr Drug Dosing 70.38 mL/min Estimated GFR (MDRD) > 60.0 ml/min Glucose 185 H (74-106) mg/dL POC Glucose 150 H 209 H (60-110) mg/dL Calcium 8.7 (8.5-10.1) mg/dL Magnesium 1.8 (1.8-2.4) mg/dL 05/10/20 05/10/20 05/10/20 Range/Units 06:09 06:09 08:20 WBC (4.0-11.0) K/uL RBC (4.50-5.90) M/uL Hgb 12.0 L (13.0-17.0) g/dL Hct 35.8 L (38.0-50.0) % MCV (80.0-98.0) fL MCH (27.0-32.0) pg MCHC (31.0-37.0) g/dL RDW Std Deviation (28.0-62.0) fl RDW Coeff of Jie (11.0-15.0) % Plt Count (150-400) K/uL MPV (7.40-12.00) fL Neut % (Auto) (48.0-80.0) % Lymph % (Auto) (16.0-40.0) % Hand % (Auto) (0.0-15.0) % Eos % (Auto) (0.0-7.0) % Baso % (Auto) (0.0-1.5) % Neut # (Auto) (1.4-5.7) K/uL Lymph # (Auto) (0.6-2.4) K/uL Hand # (Auto) (0.0-0.8) K/uL Eos # (Auto) (0.0-0.7) K/uL Baso # (Auto) (0.0-0.1) K/uL Nucleated RBC % /100WBC Nucleated RBCs # K/uL Sodium 138 (136-148) mmol/L Potassium 4.2 (3.5-5.1) mmol/L Chloride 101 (98-107) mmol/L Carbon Dioxide 28.3 (21.0-32.0) mmol/L BUN 13 (7.0-18.0) mg/dL Creatinine 1.0 (0.8-1.3) mg/dL Est Cr Clr Drug Dosing 63.35 mL/min Estimated GFR (MDRD) > 60.0 ml/min Glucose 208 H (74-106) mg/dL POC Glucose 238 H (60-110) mg/dL Calcium 8.6 (8.5-10.1) mg/dL Magnesium 1.9 (1.8-2.4) mg/dL Med Orders - Current: Current Medications Acetaminophen (Tylenol) 650 mg PO Q6H [facility] Last Admin: 05/10/20 09:03 Dose: 650 mg Documented by: Al Hydroxide/Mg Hydroxide (Mag-Al Plus) 30 ml PO Q4H PRN PRN Reason: Indigestion Amlodipine Besylate (Norvasc) 2.5 mg PO BEDTIME [facility] Last Admin: 05/09/20 20:12 Dose: Not Given Documented by: Aspirin (Ecotrin) 325 mg PO DAILY [facility] Last Admin: 05/10/20 09:03 Dose: 325 mg Documented by: Atorvastatin Calcium (Lipitor) 10 mg PO BEDTIME [facility] Last Admin: 05/09/20 20:12 Dose: Not Given Documented by: Bisacodyl (Dulcolax) 10 mg RECTAL DAILY PRN PRN Reason: Constipation Diphenhydramine HCl (Benadryl) 25 - 50 mg PO Q6H PRN PRN Reason: Itching Docusate Sodium (Colace) 100 mg PO BID PRN PRN Reason: Constipation Famotidine (Pepcid) 40 mg IVPUSH ONARRIVE [facility] Last Admin: 05/09/20 08:03 Dose: 40 mg Documented by: Famotidine (Pepcid) 40 mg PO DAILY [facility] Last Admin: 05/10/20 09:01 Dose: 40 mg Documented by: Lisinopril/HCTZ (Lisinopril-Hctz 10-12.5 Mg) 2 tab PO BEDTIME [facility] Last Admin: 05/09/20 20:12 Dose: Not Given Documented by: Ropivacaine 49.25 ml/Ketorolac Tromethamine 30 mg/Epinephrine HCl 0.5 mg/Clonidine HCl 80 mcg/ Sodium Chloride 75 mls @ 50 mls/sec INJECT ASDIRECTED [facility] Cefazolin Sodium/Dextrose 2 gm (/ Premix) 50 mls @ 100 mls/hr IV ONCALL [facility] Lactated Ringer's (Ringers, Lactated) 1,000 mls @ 100 mls/hr IV ASDIRECTED [facility] Last Admin: 05/09/20 15:52 Dose: 100 mls/hr Documented by: Ibuprofen (Motrin) 600 mg PO Q6H PRN PRN Reason: Pain Insulin Aspart (Novolog) 0 unit SUBCUT TIDAC [facility]; Protocol Last Admin: 05/10/20 08:30 Dose: Not Given Documented by: Ondansetron HCl (Zofran) 4 mg IVPUSH Q6H PRN PRN Reason: Nausea/Vomiting Oxycodone HCl (Oxycodone) 5 - 10 mg PO Q4H PRN PRN Reason: Pain Polyethylene Glycol (Miralax) 17 gm PO DAILY [facility] Last Admin: 05/10/20 09:01 Dose: 17 gm Documented by: Sodium Chloride (Saline Flush) 10 ml FLUSH ASDIRECTED PRN PRN Reason: Keep Vein Open Sodium Chloride (Saline Flush) 2.5 ml FLUSH ASDIRECTED PRN PRN Reason: Keep Vein Open Tramadol HCl (Ultram) 50 - 100 mg PO Q6H PRN PRN Reason: Pain Last Admin: 05/09/20 21:44 Dose: 100 mg Documented by: Discontinued Medications Aspirin (Aspirin) 325 mg PO DAILY [facility] Last Admin: 05/09/20 16:43 Dose: 325 mg Documented by: Cefazolin Sodium/Dextrose (Ancef) Confirm Administered Dose 2 gm IV .STK-MED ONE Stop: 05/09/20 09:45 Famotidine (Pepcid) Confirm Administered Dose 20 mg .ROUTE .STK-MED ONE Stop: 05/09/20 08:02 Famotidine (Pepcid) Confirm Administered Dose 20 mg .ROUTE .STK-MED ONE Stop: 05/09/20 08:05 Fentanyl (Sublimaze) Confirm Administered Dose 100 mcg .ROUTE .STK-MED ONE Stop: 05/09/20 08:45 Tranexamic Acid 1,000 mg/ (Sodium Chloride) 110 mls @ 600 mls/hr IV ASDIRECTED ONE Stop: 05/09/20 06:11 Last Admin: 05/09/20 14:56 Dose: Not Given Documented by: Cefazolin Sodium/Dextrose 2 gm (/ Premix) 50 mls @ 100 mls/hr IV Q8H [facility] Stop: 05/10/20 02:29 Last Admin: 05/10/20 01:29 Dose: 100 mls/hr Documented by: Ketamine HCl (Ketalar) Confirm Administered Dose 500 mg .ROUTE .STK-MED ONE Stop: 05/09/20 07:36 Ketorolac Tromethamine (Toradol) 15 mg IVPUSH Q6H [facility] Stop: 05/10/20 00:31 Last Admin: 05/09/20 23:40 Dose: Not Given Documented by: Ketorolac Tromethamine (Toradol) Confirm Administered Dose 30 mg .ROUTE .STK-MED ONE Stop: 05/09/20 13:31 Last Admin: 05/09/20 15:08 Dose: Not Given Documented by: Lidocaine HCl (Xylocaine-Mpf 1%) Confirm Administered Dose 5 ml .ROUTE .STK-MED ONE Stop: 05/09/20 09:47 Propofol (Diprivan 20 Ml) Confirm Administered Dose 400 mg .ROUTE .STK-MED ONE Stop: 05/09/20 07:36 Propofol (Diprivan 20 Ml) Confirm Administered Dose 200 mg .ROUTE .STK-MED ONE Stop: 05/09/20 10:31 Propofol (Diprivan 20 Ml) Confirm Administered Dose 200 mg .ROUTE .STK-MED ONE Stop: 05/09/20 10:31 Propofol (Diprivan 20 Ml) Confirm Administered Dose 200 mg .ROUTE .STK-MED ONE Stop: 05/09/20 11:44 Ropivacaine (Naropin 0.2%) Confirm Administered Dose 20 ml .ROUTE .STK-MED ONE Stop: 05/09/20 12:59 Tranexamic Acid (Cyklokapron) Confirm Administered Dose 1,000 mg .ROUTE .[facility]-MED ONE Stop: 05/09/20 08:21 - Exam Quality Assessment: DVT Prophylaxis. No: Supplemental Oxygen General: Alert, Oriented, Cooperative, No Acute Distress Lungs: Clear to Auscultation, Normal Respiratory Effort Cardiovascular: Regular Rate, Regular Rhythm GI/Abdominal Exam: Normal Bowel Sounds, Soft, Non-Tender Extremities: Normal Inspection, Normal Range of Motion, Non-Tender, No Pedal Edema Wound/Incisions: Dressing Dry and Intact Neurological: No New Focal Deficit Psy/Mental Status: Alert, Normal Affect, Normal Mood Sepsis Event Note - Evaluation Sepsis Screening Result: No Definite Risk - Focused Exam Vital Signs: Vital Signs Temp Pulse Resp BP Pulse Ox 05/10/20 07:00 98.4 F 86 16 136/67 94 L 05/10/20 04:18 98.1 F 84 20 141/67 H 94 L 05/09/20 23:44 97.9 F 78 18 152/70 H 95 Consult PN Assessment/Plan POD#: 1 Procedures: Procedures ASSAY OF PSA TOTAL (10/26/19) COMPLETE CBC W/AUTO DIFF WBC (07/12/19) COMPREHEN METABOLIC PANEL (07/10/18) CT ABD & PELVIS W/O CONTRAST (07/10/18) CULTURE AEROBIC IDENTIFY (10/23/14) DECALCIFY TISSUE (07/12/19) EMERGENCY DEPT VISIT (07/10/18) GAIT TRAINING THERAPY (07/12/19) GLUCOSE BLOOD TEST (07/12/19) HYDRATE IV INFUSION ADD-ON (07/10/18) IIV NO PRSV INCREASED AG IM (07/12/19) MANUAL THERAPY 1/> REGIONS (04/04/19) METABOLIC PANEL TOTAL CA (07/12/19) MICROBE SUSCEPTIBLE NIA (10/23/14) OFFICE/OUTPATIENT VISIT EST (10/26/19) OFFICE/OUTPATIENT VISIT NEW (05/12/19) PRP I/ZAY INIT REDUC >5 YR (07/07/18) PT EVAL LOW COMPLEX 20 MIN (07/12/19) ROUTINE VENIPUNCTURE (10/26/19) RPR UMBIL ZAY BLOCK > 5 YR (11/06/16) THER/PROPH/DIAG INJ IV PUSH (07/10/18) THERAPEUTIC EXERCISES (04/04/19) TISSUE EXAM BY PATHOLOGIST (07/12/19) URINALYSIS AUTO W/SCOPE (10/26/19) URINE BACTERIA CULTURE (10/23/14) US TRANSRECTAL (12/27/18) X-RAY EXAM HIP UNI 2-3 VIEWS (09/29/19) (1) S/P total hip arthroplasty SNOMED Code(s): 873773006687, 836255683755 Code(s): Z96.649 - PRESENCE OF UNSPECIFIED ARTIFICIAL HIP JOINT Current Visit: No Qualifiers: Laterality: right Qualified Code(s): Z96.641 - Presence of right artificial hip joint (2) CAD (coronary artery disease) SNOMED Code(s): 18821040 Code(s): I25.10 - ATHSCL HEART DISEASE OF [place] CORONARY ARTERY W/O ANG PCTRS Current Visit: Yes (3) DM type 2 (diabetes mellitus, type 2) SNOMED Code(s): 04132629 Code(s): E11.9 - TYPE 2 DIABETES MELLITUS WITHOUT COMPLICATIONS Current Visit: No Qualifiers: (4) Dyslipidemia SNOMED Code(s): 087140595 Code(s): E78.5 - HYPERLIPIDEMIA, UNSPECIFIED Current Visit: No (5) HTN (hypertension) SNOMED Code(s): 34144250 Code(s): I10 - ESSENTIAL (PRIMARY) HYPERTENSION Current Visit: No Qualifiers: (6) Obesity SNOMED Code(s): 081136135, 301164980 Code(s): E66.9 - OBESITY, UNSPECIFIED Current Visit: No Problem List Initiated/Reviewed/Updated: Yes My Orders Last 24 Hours: My Active Orders 05/09/20 14:41 Blood Glucose Check, Bedside [RC] TIDA 05/09/20 17:00 Insulin Aspart [NovoLOG] See Protocol SUBCUT TIDA 05/09/20 21:00 Lisinopril/Hydrochlorothiazide [Lisinopril-HCTZ 10-12.5 MG] 2 tab PO BEDTIME amLODIPine [Norvasc] 2.5 mg PO BEDTIME atorvaSTATin [Lipitor] 10 mg PO BEDTIME Plan: This 69 year old male admitted for R total hip with Dr Pepper. hospitalist service consulted for medical management 1. S/P R total hip - Orders per Orthopedics - Encourage IS 2. Dm Type 2: - Hold PO medications - Novolog SSI with meals - May restart all home medications upon discharge 3. HTN: - Stable - Amlodipine, Lisinopril and HCTZ tomorrow - BMP stable. M VTE prophylaxis: recommended when deemed appropriate by Orthopedics. ASA ordered Discharge home today per Orthopedics.
--- NOTE | 2020-05-11 12:49 | PCM.DCSUM1 ---
Discharge Summary - Hospital Course Free Text/Narrative:: document #[id number] - Discharge Data Discharge Date: 05/10/20 Discharge Disposition: Home, Self-Care 01 Condition: Good - Referral to Home Health Primary Care Physician: Wander Madsen MD - Patient Summary/Data Operative Procedure(s) Performed: Right total hip replacement Consults: Consultations 05/09/20 12:24 Consult to Physician [CONS] Routine 05/09/20 12:25 PT Evaluation and Treatment [CONS] Routine - Patient Instructions Diet: Usual Diet as Tolerated Activity: Apply Ice, Full Weight Bearing, No Strenuous Activities Driving: Do Not Drive Driving, Other: You may resume driving when your strength improves. Showering/Bathing: May Shower, No Tub Bathing/Swimming Notify Provider of: Fever, Increased Pain, Swelling and Redness, Drainage Other/Special Instructions: Take ASPIRIN 325mg daily for 3 months (this is to prevent blood clots). Wear compression socks daily (on in the morning, take off at bedtime). Walker for ambulation assistance until your strength improves, then you may switch use to a cane when you feel ready. - Discharge Plan Prescriptions/Med Rec: Aspirin [Ecotrin EC] 325 mg PO DAILY #90 tab.ec Home Medications: Home Meds amLODIPine Besylate [Norvasc] 2.5 mg PO BEDTIME 09/16/16 [History] atorvaSTATin Calcium [Atorvastatin Calcium] 10 mg PO BEDTIME 09/16/16 [History] metFORMIN HCl [Metformin HCl] 1,000 mg PO BID 09/16/16 [History] SitaGLIPtin [Januvia] 100 mg PO DAILY 06/30/18 [History] Lisinopril/Hydrochlorothiazide [Lisinopril-Hctz 20-25 mg Tab] 1 tab PO BEDTIME 07/07/19 [History] [place]-3 Acid Ethyl Esters [Lovaza] 2,000 mg PO BID 05/04/20 [History] Acetaminophen [Tylenol] 650 mg PO Q6H tablet 05/10/20 [Rx] Aspirin [Ecotrin EC] 325 mg PO DAILY #90 tab.ec 05/10/20 [Rx] Docusate Sodium [Colace] 100 mg PO BID PRN cap 05/10/20 [Rx] polyethylene glycoL 3350 [MiraLAX] 17 gm PO DAILY PRN packet 05/10/20 [Rx] Patient Handouts: Hip Arthroscopy, Aspirin, ASA oral tablets, Hip Arthroscopy, Care After Referrals: Mita Mclean [employer] APPRENTICE [Nurse Practitioner] - 05/24/20 1:00 pm - Discharge Summary/Plan Comment DC Time >30 min.: No - Patient Data Vitals - Most Recent: Last Vital Signs Temp 36.9 C 05/10/20 07:00 Pulse 86 05/10/20 07:00 Resp 16 05/10/20 07:00 BP 136/67 05/10/20 07:00 Pulse Ox 94 L 05/10/20 07:00 Weight - Most Recent: 102.058 kg Med Orders - Current: Current Medications Discontinued Medications Acetaminophen (Tylenol) 650 mg PO Q6H [facility] Last Admin: 05/10/20 09:03 Dose: 650 mg Documented by: Al Hydroxide/Mg Hydroxide (Mag-Al Plus) 30 ml PO Q4H PRN PRN Reason: Indigestion Amlodipine Besylate (Norvasc) 2.5 mg PO BEDTIME [facility] Last Admin: 05/09/20 20:12 Dose: Not Given Documented by: Aspirin (Aspirin) 325 mg PO DAILY [facility] Last Admin: 05/09/20 16:43 Dose: 325 mg Documented by: Aspirin (Ecotrin) 325 mg PO DAILY [facility] Last Admin: 05/10/20 09:03 Dose: 325 mg Documented by: Atorvastatin Calcium (Lipitor) 10 mg PO BEDTIME [facility] Last Admin: 05/09/20 20:12 Dose: Not Given Documented by: Bisacodyl (Dulcolax) 10 mg RECTAL DAILY PRN PRN Reason: Constipation Cefazolin Sodium/Dextrose (Ancef) Confirm Administered Dose 2 gm IV .STK-MED ONE Stop: 05/09/20 09:45 Diphenhydramine HCl (Benadryl) 25 - 50 mg PO Q6H PRN PRN Reason: Itching Docusate Sodium (Colace) 100 mg PO BID PRN PRN Reason: Constipation Famotidine (Pepcid) 40 mg IVPUSH ONARRIVE [facility] Last Admin: 05/09/20 08:03 Dose: 40 mg Documented by: Famotidine (Pepcid) Confirm Administered Dose 20 mg .ROUTE .STK-MED ONE Stop: 05/09/20 08:02 Famotidine (Pepcid) Confirm Administered Dose 20 mg .ROUTE .STK-MED ONE Stop: 05/09/20 08:05 Famotidine (Pepcid) 40 mg PO DAILY [facility] Last Admin: 05/10/20 09:01 Dose: 40 mg Documented by: Fentanyl (Sublimaze) Confirm Administered Dose 100 mcg .ROUTE .STK-MED ONE Stop: 05/09/20 08:45 Lisinopril/HCTZ (Lisinopril-Hctz 10-12.5 Mg) 2 tab PO BEDTIME [facility] Last Admin: 05/09/20 20:12 Dose: Not Given Documented by: Tranexamic Acid 1,000 mg/ (Sodium Chloride) 110 mls @ 600 mls/hr IV ASDIRECTED [facility] Stop: 05/09/20 06:11 Last Admin: 05/09/20 14:56 Dose: Not Given Documented by: Ropivacaine 49.25 ml/Ketorolac Tromethamine 30 mg/Epinephrine HCl 0.5 mg/Clonidine HCl 80 mcg/ Sodium Chloride 75 mls @ 50 mls/sec INJECT ASDIRECTED [facility] Cefazolin Sodium/Dextrose 2 gm (/ Premix) 50 mls @ 100 mls/hr IV ONCALL [facility] Lactated Ringer's (Ringers, Lactated) 1,000 mls @ 100 mls/hr IV ASDIRECTED [facility] Last Admin: 05/09/20 15:52 Dose: 100 mls/hr Documented by: Cefazolin Sodium/Dextrose 2 gm (/ Premix) 50 mls @ 100 mls/hr IV Q8H [facility] Stop: 05/10/20 02:29 Last Admin: 05/10/20 01:29 Dose: 100 mls/hr Documented by: Ibuprofen (Motrin) 600 mg PO Q6H PRN PRN Reason: Pain Insulin Aspart (Novolog) 0 unit SUBCUT TIDAC [facility]; Protocol Last Admin: 05/10/20 08:30 Dose: Not Given Documented by: Ketamine HCl (Ketalar) Confirm Administered Dose 500 mg .ROUTE .[facility] ONE Stop: 05/09/20 07:36 Ketorolac Tromethamine (Toradol) 15 mg IVPUSH Q6H [facility] Stop: 05/10/20 00:31 Last Admin: 05/09/20 23:40 Dose: Not Given Documented by: Ketorolac Tromethamine (Toradol) Confirm Administered Dose 30 mg .ROUTE .STK-MED ONE Stop: 05/09/20 13:31 Last Admin: 05/09/20 15:08 Dose: Not Given Documented by: Lidocaine HCl (Xylocaine-Mpf 1%) Confirm Administered Dose 5 ml .ROUTE .STK-MED ONE Stop: 05/09/20 09:47 Ondansetron HCl (Zofran) 4 mg IVPUSH Q6H PRN PRN Reason: Nausea/Vomiting Oxycodone HCl (Oxycodone) 5 - 10 mg PO Q4H PRN PRN Reason: Pain Polyethylene Glycol (Miralax) 17 gm PO DAILY [facility] Last Admin: 05/10/20 09:01 Dose: 17 gm Documented by: Propofol (Diprivan 20 Ml) Confirm Administered Dose 400 mg .ROUTE .STK-MED ONE Stop: 05/09/20 07:36 Propofol (Diprivan 20 Ml) Confirm Administered Dose 200 mg .ROUTE .STK-MED ONE Stop: 05/09/20 10:31 Propofol (Diprivan 20 Ml) Confirm Administered Dose 200 mg .ROUTE .STK-MED ONE Stop: 05/09/20 10:31 Propofol (Diprivan 20 Ml) Confirm Administered Dose 200 mg .ROUTE .STK-MED ONE Stop: 05/09/20 11:44 Ropivacaine (Naropin 0.2%) Confirm Administered Dose 20 ml .ROUTE .STK-MED ONE Stop: 05/09/20 12:59 Sodium Chloride (Saline Flush) 10 ml FLUSH ASDIRECTED PRN PRN Reason: Keep Vein Open Sodium Chloride (Saline Flush) 2.5 ml FLUSH ASDIRECTED PRN PRN Reason: Keep Vein Open Tramadol HCl (Ultram) 50 - 100 mg PO Q6H PRN PRN Reason: Pain Last Admin: 05/09/20 21:44 Dose: 100 mg Documented by: Tranexamic Acid (Cyklokapron) Confirm Administered Dose 1,000 mg .ROUTE .STK-MED ONE Stop: 05/09/20 08:21
--- NOTE | 2020-05-15 08:29 | DISCH ---
DATE OF DISCHARGE: 05/10/2020 PRIMARY CARE PHYSICIAN: Wander Madsen M.D. ADMITTING DIAGNOSIS: Right hip grade 4 primary osteoarthritis. OTHER MEDICAL DIAGNOSES: 1. Hypertension. 2. Diabetes. 3. Diabetic neuropathy. DISCHARGE MEDICAL DIAGNOSES: 1. Status post right total hip replacement. 2. Hypertension. 3. Diabetes. 4. Diabetic neuropathy. HISTORY: This 69-year-old male with previous left total hip arthroplasty, underwent right total hip replacement 05/09/[address] Severo Pepper. No known surgical complications. He was admitted to Med/Surg for postoperative care and physical therapy. HOSPITAL COURSE: Consulted hospitalist services for medical management of his diabetes. Postoperatively, Lux did exceptionally well. Vital signs stable/afebrile. Had no acute nausea or vomiting and was tolerating food and fluids. He had minimal pain after surgery. He did receive a fascia iliac compartment block by Anesthesia in recovery. Pain was controlled with a dose of Ultram the 1st night and he refused the need for Tylenol afterwards. He did well with having little pain and taking only Tylenol prn with his previous hip surgery. He was ambulating with staff and physical therapy with his walker. He felt ready to be discharged POD#1. I removed his surgical dressings POD#1. Incision was well approximated, clean, dry, and intact. A large Aquacel was applied. A 2nd Aquacel was to be sent home with him to change in 1 week. DVT prophylaxis: ASA date of surgery, SCDs, early ambulation, and compression stockings. Antibiotic coverage: Ancef 2 g x2 additional doses after preop prophylactic dose. Blood work: Hemoglobin POD #1 12.0 (previously was 12.9). DISCHARGE MEDICATIONS: 1. Acetaminophen 325 mg 2 tabs p.o. q.6 hours. 2. Norvasc 2.5 mg at bedtime. 3. Aspirin 325 mg daily x90 days. 4. Atorvastatin 10 mg at bedtime. 5. Docusate 100 mg b.i.d. p.r.n. 6. Lisinopril/hydrochlorothiazide 20/25 mg 1 tablet at bedtime. 7. Metformin 500 mg b.i.d. 8. Lovaza 1 g capsule b.i.d. 9. MiraLax 17 g packet daily p.r.n. 10.Januvia 100 mg daily. DISCHARGE ORDERS: Followup appointment scheduled in 2 weeks in [facility]. He did not have PT with his previous hip surgery and declined the need for formal therapy following current hip replacement. He declined the need for a narcotic prescription upon discharge and discussed management of constipation and he states he did not have issues with this after his last surgery. He did not need a prescription for a walker as he has one at home. He was informed if he has any questions or acute concerns, to contact the orthopedic clinic. ZENOBIA / NO /[id number] STANISLAW
== END 2020-05-10 09:15 | disposition home or self-care (01) ==
LOC: INTOOBSV 06:58 → MW.MS 06:58 → MW.SDS 06:58 → UNDOADMOB 06:58 → EDSTATUS 08:00 → MW.MS 14:47 → UNDODISOB 05-10 09:15 → MW.SDS 05-10 09:15
PROVIDERS: ATTEND Orthopaedic Surgery
DX: M16.11 Unilateral primary osteoarthritis, right hip (principal); M25.751 Osteophyte, right hip; E78.00 Pure hypercholesterolemia, unspecified; I10 Essential (primary) hypertension; F41.9 Anxiety disorder, unspecified; E11.40 Type 2 diabetes mellitus with diabetic neuropathy, unspecified; I25.10 Atherosclerotic heart disease of native coronary artery without angina pectoris; E78.5 Hyperlipidemia, unspecified; E66.9 Obesity, unspecified; Z79.84 Long term (current) use of oral hypoglycemic drugs; Z91.030 Bee allergy status; Z91.041 Radiographic dye allergy status; Z79.899 Other long term (current) drug therapy; Z79.82 Long term (current) use of aspirin; Z68.35 Body mass index [BMI] 35.0-35.9, adult; M25.551 Pain in right hip
CPT/HCPCS: 27130; 36415; 72170; 80048; 82962; 83735; 85014; 85018; 85025; 86850; 86900; 86901; 88304; 88311; A9270; C1713; C1776; J0171; J0690; J0735; J1885; J2001; J2704; J2795; J3010; J3490; J7050; J7120; 01214; 64447; 99202; 99212